=== PATIENT | male | born 1985 | race African-American/Black ===

== ENCOUNTER 2018-10-24 13:21 | Emergency (ER) | payer OTHER ==
[~2018-10-24] VITALS: Ht 170.2 cm; Wt 60.8 kg
[2018-10-24 13:29] VITALS: Ht 170.2 cm; Wt 60.8 kg
[2018-10-24 14:09] VITALS: BP 111/78
== END 2018-10-24 14:09 | disposition home or self-care (01) ==
LOC: ED 13:21
DX: L02.414 Cutaneous abscess of left upper limb (principal); Z88.0 Allergy status to penicillin